=== PATIENT | female | born 2000 | race Caucasian/White ===

== ENCOUNTER 2025-01-09 14:59 | Emergency (ER) | payer BC, MEDICAID ==
[~2025-01-09] VITALS: Ht 160 cm; Wt 73.0 kg
[2025-01-09 15:11] VITALS: TEMP 98.9
[2025-01-09 16:11] VITALS: BP 106/76; PULSE 68; RESP 16; O2SAT 98
== END 2025-01-09 16:34 | disposition left against medical advice (07) ==
LOC: ER 15:00
DX: S40.022A Contusion of left upper arm, initial encounter (principal); S40.021A Contusion of right upper arm, initial encounter; X58.XXXA Exposure to other specified factors, initial encounter; Y93.89 Activity, other specified; Y92.89 Other specified places as the place of occurrence of the external cause; Y99.8 Other external cause status; Z53.21 Procedure and treatment not carried out due to patient leaving prior to being seen by health care provider